=== PATIENT | female | born 1945 | race African-American/Black ===

== ENCOUNTER 2018-09-17 10:10 | Outpatient (CLI) | payer OTHER ==
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
== END 2018-09-17 10:11 | disposition home or self-care (01) ==
LOC: RAD-FRANK 10:10
PROVIDERS: ATTEND Internal Medicine
DX: R07.81 Pleurodynia (principal); S20.35 Superficial foreign body of front wall of thorax

== ENCOUNTER 2018-10-11 07:27 | Emergency (ER) | payer OTHER, MEDICARE ==
[2018-10-11 08:27] LABS: #Eosinphils 0.1 thou/uL (0.0-0.7); #Lymphocytes 1.7 thou/uL (1.20-3.40); #Monocytes 0.4 thou/uL (0.11-0.59); %Basophils 0.4 % (0.0-1.0); %Lymphocytes 32.8 % (21.0-51.0); %Neutrophils 56.8 % (42.0-75.0); Hemoglobin 12.1 g/dL (12.0-16.0); Mean Corpuscular HGB CONC 30.3 g/dL (32.0-36.0); Mean Corpuscular Hemoglobin 27.2 pg (27.0-31.0); Mean Corpuscular Volume 89.9 fL (78.0-98.0); Mean Platelet Volume 6.6 fL (7.4-10.4); Platelet Count 351 thou/uL (130-400); RBC Distribution Width 13.5 % (11.5-14.5); Red Blood Cell (RBC) Count 4.44 mill/uL (4.20-5.40); White Blood Cell (WBC) Count 5.3 thou/uL (4.8-10.8)
[2018-10-11 08:41] LABS: ALT (SGPT) 15 U/L (8-55); AST (SGOT) 20 U/L (5-34); Albumin 3.9 g/dL (3.4-4.8); Alkaline Phosphatase 89 U/L (40-150); Anion Gap 8 mmol/L (10-20); BUN (Urea Nitrogen) 12 mg/dL (9.8-20.1); Bilirubin, Total 0.3 mg/dL (0.2-1.2); Calc. Creatinine Clearance 0 mL/min (70-130); Calcium 9.7 mg/dL (7.8-10.44); Carbon Dioxide 30 mmol/L (23-31); Chloride 105 mmol/L (98-107); Estimated GFR-MDRD 77; Globulin 3.2 g/dL (2.4-3.5); Glucose 114 mg/dL (83-110); Potassium 3.5 mmol/L (3.5-5.1); Protein, Total 7.1 g/dL (6.0-8.3); Sodium 139 mmol/L (136-145)
[2018-10-11 08:45] LABS: CKMB 1.3 ng/mL (0-6.6); Troponin I Less than 0.010 ng/mL (< 0.028)
[2018-10-11] MEDS ORDERED: Ketorolac Tromethamine 30 MG/ML VIAL ONE (09:40)
--- NOTE | 2018-10-11 10:00 | RAD ---
CHEST 2 VIEWS: Date: 10/11/18 HISTORY: Chest pain. COMPARISON: Radiograph from 2016. FINDINGS: There is a radiopaque foreign object in the right hemiabdomen, unchanged. There are small calcified g ranulomas in the right upper lobe similar to 2008. No focal confluent air space consolidation, pneumo thorax, or effusion. Chronic scarring of the left costophrenic sulcus. Chronic scarring left costophr enic sulcus. Mild dextroscoliosis thoracic spine. IMPRESSION: No significant change. No acute intrathoracic abnormality. POS: [facility]
[2018-10-11 11:55] LABS: Troponin I Less than 0.010 ng/mL (< 0.028)
== END 2018-10-11 13:00 | disposition home or self-care (01) ==
LOC: ERS 07:27
DX: R07.89 Other chest pain (principal); E11.9 Type 2 diabetes mellitus without complications; I10 Essential (primary) hypertension; E03.9 Hypothyroidism, unspecified; F41.9 Anxiety disorder, unspecified; Z79.82 Long term (current) use of aspirin; Z79.899 Other long term (current) drug therapy; Z79.1 Long term (current) use of non-steroidal anti-inflammatories (NSAID)
CPT/HCPCS: 36415; 71046; 80053; 82553; 84484; 85025; 93005; 96372; J1885

== ENCOUNTER 2018-11-09 05:46 | Observation (INO) | payer OTHER, MEDICARE ==
[2018-11-09 07:05] LABS: #Eosinphils 0.2 thou/uL (0.0-0.7); #Lymphocytes 2.9 thou/uL (1.20-3.40); #Monocytes 0.4 thou/uL (0.11-0.59); #Neutrophils 3.3 thou/uL (1.40-6.50); %Basophils 0.2 % (0.0-1.0); %Eosinophils 2.7 % (0.0-10.0); %Monocytes 5.5 % (0.0-10.0); %Neutrophils 48.6 % (42.0-75.0); Hemoglobin 11.2 g/dL (12.0-16.0); Mean Corpuscular Hemoglobin 28.3 pg (27.0-31.0); Mean Corpuscular Volume 88.3 fL (78.0-98.0); Mean Platelet Volume 6.7 fL (7.4-10.4); Platelet Count 363 thou/uL (130-400); Red Blood Cell (RBC) Count 3.94 mill/uL (4.20-5.40); White Blood Cell (WBC) Count 6.7 thou/uL (4.8-10.8)
[2018-11-09 07:29] LABS: ALT (SGPT) 12 U/L (8-55); AST (SGOT) 16 U/L (5-34); Albumin 3.7 g/dL (3.4-4.8); Alkaline Phosphatase 94 U/L (40-150); Anion Gap 11 mmol/L (10-20); BUN (Urea Nitrogen) 16 mg/dL (9.8-20.1); Bilirubin, Total 0.4 mg/dL (0.2-1.2); Calc. Creatinine Clearance 0 mL/min (70-130); Calcium 9.7 mg/dL (7.8-10.44); Carbon Dioxide 28 mmol/L (23-31); Chloride 104 mmol/L (98-107); Estimated GFR-MDRD 84; Globulin 3.5 g/dL (2.4-3.5); Glucose 121 mg/dL (83-110); Potassium 3.5 mmol/L (3.5-5.1); Protein, Total 7.2 g/dL (6.0-8.3); Sodium 139 mmol/L (136-145)
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
[2018-11-09] MEDS ORDERED: Enoxaparin Sodium 100 MG/ML SYRINGE ONE (08:10)
[2018-11-09 10:24] VITALS: BMI 37.1
[2018-11-09] MEDS ORDERED: Ondansetron PF 4 MG/2 ML Vial IVP PRN ×2 (10:33→20:33)
[2018-11-09] MEDS ORDERED: Ondansetron ODT 4 MG TAB SL PRN ×2 (10:33→20:33)
[2018-11-09] MEDS ORDERED: Acetaminophen 325 MG TAB PO PRN (10:33)
--- NOTE | 2018-11-09 11:12 | NM ---
LUNG PERFUSION SCAN: HISTORY: Chest pain. FINDINGS: Lung perfusion scan was performed. Ventilation perfusion scan was attempted; however, the patient wa s unable to follow breathing instructions. Radiation dosimetry: 5.8 mCi of Technetium 99m-MAA for the perfusion portion. Lung perfusion scan was performed and demonstrates no evidence of areas of perfusion defects to sugge st pulmonary emboli. No other definite abnormality is seen. IMPRESSION: Low probability scan for pulmonary emboli. POS: [facility]
[2018-11-09 11:41] LABS: Troponin I Less than 0.010 ng/mL (< 0.028)
[2018-11-09 14:41] LABS: Troponin I Less than 0.010 ng/mL (< 0.028)
[2018-11-09] MEDS ORDERED: Insulin Regular 300 UNITS/3 ML VIAL SC PRN (17:01)
[2018-11-09] MEDS ORDERED: Dextrose 50% Abboject 50 ML SYRINGE IVP PRN (17:01)
[2018-11-09] MEDS ORDERED: Dextrose 5% in Water 1,000 ML IV PRN (17:01)
[2018-11-09] MEDS ORDERED: Acetaminophen 500 MG TAB PO PRN (17:02)
[2018-11-09] MEDS ORDERED: ALPRAZolam 0.5 MG TAB PO PRN (17:02)
[2018-11-09] MEDS ORDERED: Ketorolac Tromethamine 30 MG/ML VIAL IVP SCH (18:00)
[2018-11-09] MEDS ORDERED: diphenhydrAMINE 25 MG CAP PO SCH (20:45)
[2018-11-09] MEDS ORDERED: Zolpidem Tartrate 5 MG TAB PO SCH (21:00)
--- NOTE | 2018-11-10 07:58 | HP ---
CHIEF COMPLAINT: Chest pain, shortness of breath, and dizziness. HISTORY OF PRESENT ILLNESS: Ms. Donald is a 73-year-old female with past medical history of diabetes, hypertension, and chronic back pain, who has developed pain last night in the right side advanced to the left side, which was like stabbing in nature and felt short of breath, and has been feeling dizzy as well, but no diaphoresis, no nausea or vomiting. The patient also complains of pain on the left side of the chest and below the breast where it has been going on for a few months. The patient is seen and currently had a CT of the chest done, but unremarkable. The patient was brought to the ER with left-sided chest pain, shortness of breath, and dizziness. In the ER, the patient did not have any chest pain. patient received aspirin, admitted to rule out myocardial infarction. PAST MEDICAL HISTORY: 1. Diabetes mellitus. 2. Hypertension. 3. Hyperlipidemia. 4. Gastroesophageal reflux disease. 5. Chronic back pain. 6. History of dizziness. PAST SURGICAL HISTORY: 1. Total hysterectomy. 2. Lumps removed from left breast. CURRENT MEDICATIONS: The patient is on; 1. Tylenol p.r.n. 2. Xanax 0.5 t.i.d. p.r.n. 3. Amlodipine 5 mg daily. 4. Aspirin 81 mg daily. 5. Lasix 20 mg daily. 6. Levothyroxine 50 mcg daily. 7. Losartan 100 mg daily. 8. KCl 10 mEq daily. 9. Ambien 5 mg at bedtime p.r.n. ALLERGIES: INCLUDE PENICILLIN, SULFA, CODEINE, AND DOXYCYCLINE. FAMILY HISTORY: Nothing contributory. SOCIAL HISTORY: The patient lives with family. No history of smoking. No alcohol. REVIEW OF SYSTEMS: CARDIOVASCULAR: Has chest pain and shortness of breath. RESPIRATORY: No fever or cough. GASTROINTESTINAL: No nausea, vomiting or abdominal pain. CENTRAL NERVOUS SYSTEM: No headache. Dizziness. PHYSICAL EXAMINATION: GENERAL: The patient is alert, awake, and oriented x3. VITAL SIGNS: Temperature 98, pulse 80, respirations 20, and blood pressure 130/ 80. HEENT: Head is normocephalic and atraumatic. Pupils are equal and reactive to light. Nasopharynx is pale SKIN: Turgor decreased. NECK: Supple. No JVD. LUNGS: Bilateral air entry present. HEART: Regular. Chest wall tender in the right mid rib area and below the right breast. ABDOMEN: Soft. No distention. No tenderness. Normal bowel sounds. CENTRAL NERVOUS SYSTEM: No focal deficits. LABORATORY DATA: CBC; WBC 6700, hemoglobin 11, hematocrit 34, platelets 360, D-dimer 1.38. Metabolic panel; sodium 139, potassium 3.6, chloride 104. Troponin I less than 0.06. ASSESSMENT: 1. Chest pain and shortness of breath, rule out myocardial infarction. 2. Pain below right breast, etiology not clear. 3. Dizziness. 4. Hypertension. 5. Diabetes mellitus. 6. Chronic back pain. PLAN: 1. Vital signs q.4 hours. 2. Activity as tolerated. 3. Allergies: Penicillin, sulfa, codeine and doxycycline. 4. Diet, cardiac and ADA. 5. Continue home medications. 6. Aspirin daily. 7. Accu-Chek before meals and at bedtime, sliding scale with mild regular insulin. 8. Troponin I q 6hrs x 2 9. Toradol p.r.n. 10. Bone scan. Job ID: [id number] [facility]
[2018-11-10 08:07] VITALS: BP 133/58; TEMP 98
[2018-11-10] MEDS ORDERED: Furosemide 20 MG TAB PO SCH (09:00)
[2018-11-10] MEDS ORDERED: Amlodipine 5 MG TAB PO SCH (09:00)
[2018-11-10] MEDS ORDERED: Losartan 25 MG TAB PO SCH (09:00)
--- NOTE | 2018-11-11 14:48 | DIS ---
DATE OF ADMISSION: 11/09/2018 DATE OF DISCHARGE: 11/10/2018 ADMITTING DIAGNOSES: 1. Chest pain and shortness of breath, rule out myocardial infarction. 2. Pain below right rib area, etiology not clear. 3. Dizziness. 4. Hypertension. 5. Diabetes mellitus. 6. Chronic back pain. FINAL DIAGNOSES: 1. Chest pain and shortness of breath, no evidence of acute myocardial infarction with normal cardiac enzymes. 2. Chest pain, resolved. 3. Right rib cage area pain, improving. 4. Dizziness, improved. 5. Hypertension. 6. Diabetes mellitus. 7. Chronic back pain. BRIEF SUMMARY OF HOSPITAL COURSE: Ms. Donald is a 73-year-old female, admitted because of chest pain and right rib pain. The patient was admitted to rule out myocardial infarction because of her risk factors. The patient had Cardiolite stress test and it was reprted as negative for ischemia. The patient continued to have right rib cage area pain and she had a CAT done at the [facility], did not reveal any abnormality. Chest x-ray was normal and rib x- rays are normal. A VQ scan was negative for pulmonary embolism. Suggested bone scan, but it could not be done because of her VQ scan. Again the bone scan can be done as an outpatient, so the patient will continue Motrin p.r.n. for her right rib pain. She is being discharged home. At the time of discharge, she is stable, vital signs are stable, abdomen is soft, nontender. DISCHARGE MEDICATIONS: 1. KCl 10 mEq daily. 2. Xanax 0.5 t.i.d. p.r.n. 3. Lasix 20 mg daily. 4. Levothyroxine 50 mcg daily. 5. Ambien 5 mg at bedtime. 6. Tylenol Extra Strength p.r.n. 7. Aspirin 81 mg daily. FOLLOWUP: The patient will followup 2 weeks. Job ID: [id number] [facility]
--- NOTE | 2018-11-15 13:26 | EKG ---
Test Reason : Blood Pressure : / mmHG Vent. Rate : 076 BPM Atrial Rate : 076 BPM P-R Int : 192 ms QRS Dur : 082 ms QT Int : 386 ms P-R-T Axes : 072 003 017 degrees QTc Int : 434 ms Normal sinus rhythm Normal ECG Confirmed by LARISSA HEARN DO ([id number]), newspaper or periodical editor LETHA SWENSON ([id number]) on 11/15/2018 1:25:53 PM Referred By: Confirmed By:LARISSA HEARN DO
== END 2018-11-10 10:09 | disposition home or self-care (01) ==
LOC: ERS 05:46 → 2SW 07:52
PROVIDERS: ADMIT Internal Medicine; ATTEND Internal Medicine
DX: R07.9 Chest pain, unspecified (principal); R06.02 Shortness of breath; R42 Dizziness and giddiness; I10 Essential (primary) hypertension; E11.9 Type 2 diabetes mellitus without complications; G89.29 Other chronic pain; M54.9 Dorsalgia, unspecified; E78.5 Hyperlipidemia, unspecified; K21.9 Gastro-esophageal reflux disease without esophagitis; Z79.82 Long term (current) use of aspirin; Z79.899 Other long term (current) drug therapy; Z88.0 Allergy status to penicillin; Z88.1 Allergy status to other antibiotic agents; Z88.2 Allergy status to sulfonamides; Z88.5 Allergy status to narcotic agent
CPT/HCPCS: 36415; 36416; 71046; 78582; 80053; 84484; 85025; 85379; 93005; 94640; 96372; 96374; A9540; A9558; G0378; J1650; J1885; J7620; Q0162

== ENCOUNTER 2018-11-11 10:10 | Outpatient (CLI) | payer OTHER, MEDICARE ==
--- NOTE | 2018-11-11 17:11 | NM ---
WHOLE BODY BONE SCAN: 11/11/18 HISTORY: Right sided rib pain. Hypercalcemia. RADIOPHARMACEUTICAL: 30.4 millicuries technetium 99m labeled MDP, IV. VIEWS OBTAINED: Inferior posterior whole body. COMPARISON: None available. FINDINGS: There is mild increased uptake of radiotracer seen within the bilateral shoulders, each sternoclavicu lar joint and medial aspect of each knee in a degenerative pattern. No additional abnormal uptake rad iotracer seen throughout the visualized axial or appendicular skeleton. There is mild retention of co ntrast seen within the left renal collecting system of uncertain etiology. Contrast is seen in the u rinary bladder. IMPRESSION: 1. Mild scattered degenerative changes as noted above, but there is no scintigraphic evidence of osseous metastatic disease. 2. No focal areas of abnormal uptake of radiotracer is seen within the right sided ribs. 3. Mild nonspecific retention of radiotracer within the left renal collecting system. POS: [facility]
== END 2018-11-11 10:11 | disposition home or self-care (01) ==
LOC: NM 10:10
PROVIDERS: ATTEND Internal Medicine
DX: R07.81 Pleurodynia (principal); R94.8 Abnormal results of function studies of other organs and systems
CPT/HCPCS: 78306; A9503

== ENCOUNTER 2019-05-31 18:44 | Emergency (ER) | payer OTHER, MEDICARE ==
[2019-05-31] MEDS ORDERED: diphenhydrAMINE 12.5 MG/5 ML UDCUP ONE ×2 (19:06→20:30)
[2019-05-31] MEDS ORDERED: Acetaminophen 500 MG TAB ONE (19:06)
[2019-05-31] MEDS ORDERED: diphenhydrAMINE 25 MG CAP ONE ×2 (19:06→19:33)
[2019-05-31] MEDS ORDERED: diphenhydrAMINE 50 MG/ML VIAL ONE (19:07)
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
--- NOTE | 2019-05-31 19:38 | RAD ---
RIGHT KNEE FOUR VIEWS: HISTORY: Pain. COMPARISON: 08/20/2013 FINDINGS: No significant joint effusion. Mild degenerative change of the patellofemoral and medial compartment . No fracture or malalignment. IMPRESSION: Mild bicompartmental degenerative change. POS: [facility]
[2019-05-31] MEDS ORDERED: Ondansetron ODT 4 MG TAB ONE (19:42)
--- NOTE | 2019-05-31 19:43 | RAD ---
RIGHT SHOULDER THREE VIEWS: HISTORY: Fall. Pain. FINDINGS: Limited evaluation of the glenohumeral joint space, based upon the images provided. Obvious dislocat ion is not appreciated. Better evaluation of the glenohumeral joint space, as well as alignment of t he humeral head with respect to the glenoid, with a scapular Y or axillary view would be beneficial. Based on the images provided, no fracture. The visualized ribs appear to be intact. There is mild degenerative change of the acromioclavicular joint space. IMPRESSION: 1. No evidence of fracture. 2. Limited evaluation for dislocation. Additional imaging as recommended. POS: [facility]
== END 2019-05-31 22:05 | disposition home or self-care (01) ==
LOC: ERS 18:44
DX: S63.502A Unspecified sprain of left wrist, initial encounter (principal); M25.561 Pain in right knee; M25.511 Pain in right shoulder; Z79.899 Other long term (current) drug therapy; E11.9 Type 2 diabetes mellitus without complications; E03.9 Hypothyroidism, unspecified; I10 Essential (primary) hypertension; F41.9 Anxiety disorder, unspecified; W18.30XA Fall on same level, unspecified, initial encounter
CPT/HCPCS: 71045; J1200; Q0162; Q0163

== ENCOUNTER 2019-12-23 10:15 | Inpatient (IN) | payer OTHER, MEDICARE ==
[2019-12-23 11:32] LABS: #Eosinphils 0.1 thou/uL (0.0-0.7); #Lymphocytes 2.2 thou/uL (1.20-3.40); #Monocytes 0.5 thou/uL (0.11-0.59); #Neutrophils 5.5 thou/uL (1.40-6.50); %Basophils 0.5 % (0.0-1.0); %Eosinophils 0.7 % (0.0-10.0); %Lymphocytes 26.8 % (21.0-51.0); %Monocytes 5.5 % (0.0-10.0); %Neutrophils 66.5 % (42.0-75.0); Hemoglobin 11.9 g/dL (12.0-16.0); Mean Corpuscular HGB CONC 32.7 g/dL (32.0-36.0); Mean Corpuscular Volume 88.8 fL (78.0-98.0); Mean Platelet Volume 6.7 fL (7.4-10.4); Platelet Count 393 thou/uL (130-400); RBC Distribution Width 13.6 % (11.5-14.5); White Blood Cell (WBC) Count 8.2 thou/uL (4.8-10.8)
[2019-12-23] MEDS ORDERED: hydrALAZINE 20 MG/ML VIAL ONE (11:38)
[2019-12-23] MEDS ORDERED: Meclizine HCl 25 MG TAB ONE (11:38)
[2019-12-23 11:45] LABS: ALT (SGPT) 9 U/L (8-55); AST (SGOT) 16 U/L (5-34); Albumin 3.8 g/dL (3.4-4.8); Alkaline Phosphatase 110 U/L (40-110); Anion Gap 14 mmol/L (10-20); BUN (Urea Nitrogen) 15 mg/dL (9.8-20.1); Bilirubin, Total 0.6 mg/dL (0.2-1.2); Calc. Creatinine Clearance 0 mL/min (70-130); Calcium 9.5 mg/dL (7.8-10.44); Carbon Dioxide 25 mmol/L (23-31); Chloride 102 mmol/L (98-107); Estimated GFR-MDRD 82; Globulin 3.8 g/dL (2.4-3.5); Glucose 104 mg/dL (83-110); Potassium 3.8 mmol/L (3.5-5.1); Protein, Total 7.6 g/dL (6.0-8.3); Sodium 137 mmol/L (136-145)
[2019-12-23 12:32] LABS: Bacteria/HPF 1+ HPF (None Seen); Bilirubin Negative (Negative); Blood, Urine Negative (Negative); Clarity Clear (Clear); Glucose, Urine (Dipstick) Normal (Negative); Leukocyte 500 Leu/uL (Negative); Nitrite Negative (Negative); Protein, Urine (Dipstick) Negative (Neg-Trace); RBC/HPF 0-3 HPF (0-3); Urobilinogen Normal mg/dL (Less than 2)
[2019-12-23] MEDS ORDERED: Diazepam 10 MG/2 ML SYRINGE ONE (12:47)
--- NOTE | 2019-12-23 14:36 | CT ---
CT HEAD WITHOUT CONTRAST: Date: 12/23/2019 Axial tomograms obtained without IV enhancement. INDICATION: Dizziness. Comparison made to CT scan dated 08/06/16. FINDINGS: No evidence of intracranial mass or hemorrhage. Mild ischemic white matter change appears stable. The re are ischemic changes seen in the basal ganglia bilaterally, which also appear stable. If there is concern of acute lacunar infarct, recommend further evaluation with MRI. IMPRESSION: No evidence of acute cortical infarct. There are chronic ischemic changes in the basal ganglia region s as described. POS: [facility]
[2019-12-23] MEDS ORDERED: Ondansetron PF 4 MG/2 ML Vial ONE (14:52)
[2019-12-23] MEDS ORDERED: Acetaminophen 500 MG TAB ONE (15:49)
[2019-12-23 16:55] VITALS: BMI 34.2
[2019-12-23] MEDS ORDERED: Ondansetron ODT 4 MG TAB SL PRN (16:58)
[2019-12-23] MEDS ORDERED: Ondansetron PF 4 MG/2 ML Vial IVP PRN (16:58)
[2019-12-23] MEDS ORDERED: Dextrose 50% Abboject 50 ML SYRINGE IVP PRN (19:06)
[2019-12-23] MEDS ORDERED: Dextrose 5% in Water 1,000 ML IV PRN (19:06)
[2019-12-23] MEDS ORDERED: Insulin Regular 300 UNITS/3 ML VIAL SC PRN (19:06)
[2019-12-23] MEDS: Acetaminophen 500 MG TAB PO SCH (21:08)
[2019-12-23] MEDS: Meclizine HCl 25 MG TAB PO SCH (21:09)
[2019-12-23] MEDS ORDERED: Zolpidem Tartrate 5 MG TAB PO SCH (21:30)
[2019-12-24] MEDS: Acetaminophen 500 MG TAB PO SCH ×3 (08:01→17:01)
[2019-12-24] MEDS: Losartan 25 MG TAB PO SCH (08:02)
[2019-12-24] MEDS: Meclizine HCl 25 MG TAB PO SCH ×3 (08:03→21:26)
[2019-12-24] MEDS: Potassium Chloride 10 MEQ TAB PO SCH ×2 (08:03→21:24)
[2019-12-24] MEDS: Levothyroxine Sodium 50 MCG TAB PO SCH (08:03)
[2019-12-24] MEDS: Amlodipine 5 MG TAB PO SCH (08:03)
[2019-12-24] MEDS: Aspirin 81 mg Enteric Coated Tablet PO SCH (08:03)
[2019-12-24] MEDS: Furosemide 20 MG TAB PO SCH ×2 (08:03→21:26)
--- NOTE | 2019-12-24 08:05 | HP ---
CHIEF COMPLAINT: Severe dizziness and pain and pressure on the left side of the head. HISTORY OF PRESENT ILLNESS: Ms. Donald is a 74-year-old female with past medical history of hypertension, hyperlipidemia, anxiety disorder, came with sudden onset of dizziness started yesterday and got worse last night and this morning. The patient was unable to ambulate at home, unable to stand and feeling very dizzy and the room spinning around, but no ringing in the ears. No nausea , but has some pressure like pain on the left side of the head, left occipital area. The patient had a problem of dizziness in the past, was evaluated by the ENT specialist at that time. She has hearing aid on the right, after which her hearing improved vertigo also kind of improved but started again now. So, the patient came to the ER, where she was evaluated and found to have elevated blood pressure and also CT scan of the brain was done, it was unremarkable. The patient received Zofran, Tylenol, and diltiazem in the ER. The patient is admitted for further evaluation and management. PAST MEDICAL HISTORY: 1. Hypertension. 2. Anxiety disorder. 3. Insomnia. 4. Chronic back pain. 5. Gastroesophageal reflux disease. 6. Diabetes mellitus. PAST SURGICAL HISTORY: 1. Status post hysterectomy. 2. Status post lump removal from left breast. CURRENT MEDICATIONS: The patient is on: 1. Xanax 0.5 t.i.d. p.r.n. 2. Amlodipine 5 mg daily. 3. Aspirin 81 mg daily. 4. Nexium 20 mg daily. 5. Lasix 20 b.i.d. 6. Levothyroxine 50 mcg daily. 7. Losartan 100 mg daily. 8. Potassium chloride 10 mEq b.i.d. 9. Ambien 5 mg at bedtime. ALLERGIES: PENICILLIN, SULFA, CODEINE, AND DOXYCYCLINE. FAMILY HISTORY: Nothing contributory. SOCIAL HISTORY: The patient lives with family. No history of smoking. No history of alcohol. REVIEW OF SYSTEMS: CARDIOVASCULAR: No chest pain. No shortness of breath. RESPIRATORY: Has no cough or fever. GASTROINTESTINAL: No nausea or vomiting. No abdominal pain. CENTRAL NERVOUS SYSTEM: Has pressure pain on the left side of the head and dizziness. PHYSICAL EXAMINATION: GENERAL: The patient is alert, awake. VITAL SIGNS: Temperature 98, pulse 84, respiratory rate 20, blood pressure 160/ 70. HEENT: Head is normocephalic and atraumatic. Pupils are equal and reactive. Nasopharynx is pale and dry. NECK: Supple. No JVD. LUNGS: Bilateral air entry. No rales. No rhonchi. HEART: S1 and S2 regular. ABDOMEN: Soft. No distention. No tenderness. No organomegaly. Bowel sounds present. RECTAL: Deferred. CENTRAL NERVOUS SYSTEM: The patient is alert, awake, oriented x3. Motor system, power 4/5 in all extremities. Deep tendon reflex 2+ bilaterally. Plantars downgoing. Sensory intact. LABORATORY DATA: CBC shows WBC 8.5, hemoglobin 11.9, hematocrit 36. platelets 393. Metabolic panel; sodium 137, potassium 3.8, chloride 102, CO2 of 25, urea nitrogen 15, creatinine 0.8, glucose 104. Troponin less than 0.010. Urinalysis, wbc 11-20, bacteria 1+. CT scan of brain unremarkable. ASSESSMENT: 1. Severe dizziness, possible vertigo. 2. Pressure to the left side of the head. 3. Hypertension, uncontrolled. 4. Diabetes mellitus. 5. Hyperlipidemia. 6. Anxiety disorder. 7. Insomnia. 8. Gastroesophageal reflux disease. PLAN: 1. Vital signs q.4 hours. 2. Activity, as tolerated. 3. Allergies, multiple, which include codeine, Toradol, morphine, penicillin, sulfa, doxycycline. 4. Diet, ADA. 5. Continue home medications. 6. Meclizine 25 mg t.i.d. 7. Neurology consult. 8. Tylenol Extra Strength one q.4 hours. 9. Accu-Chek before meals and sliding scale mild with regular insulin. Job ID: [id number] [facility]
[2019-12-24] MEDS: ALPRAZolam 0.5 MG TAB PO PRN (19:06)
[2019-12-24] MEDS: Zolpidem Tartrate 5 MG TAB PO SCH (21:25)
[2019-12-24] MEDS: Atorvastatin Calcium 40 MG TAB PO SCH (21:25)
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
[2019-12-25] MEDS: Acetaminophen 500 MG TAB PO SCH ×5 (00:40→23:07)
[2019-12-25] MEDS: Levothyroxine Sodium 50 MCG TAB PO SCH (05:37)
--- NOTE | 2019-12-25 08:16 | ULT ---
Carotid duplex sonogram HISTORY: Dizziness. Vascular disease. FINDINGS: Right: Small area of plaque. Color and spectral Doppler evaluation, peak systolic velocity of 41 cm/s , and IC to CC ratio 0.8 suggest no hemodynamically significant stenosis within the extracranial right ICA. Antegrade flow within the vertebral artery. Left: Mild plaque. Color and spectral Doppler evaluation, peak systolic velocity of 62 cm/s, and IC t o CC ratio 1.0 suggest no hemodynamically significant stenosis within the extracranial left ICA. Antegrade flow within the vertebral artery. IMPRESSION: Atherosclerosis. No sonographic evidence of significant extracranial ICA stenosis.
[2019-12-25] MEDS: Losartan 25 MG TAB PO SCH (09:24)
[2019-12-25] MEDS: Amlodipine 5 MG TAB PO SCH (09:25)
[2019-12-25] MEDS: Potassium Chloride 10 MEQ TAB PO SCH ×2 (09:25→20:47)
[2019-12-25] MEDS: Clopidogrel Bisulfate 75 MG TAB PO SCH (09:25)
[2019-12-25] MEDS: Meclizine HCl 25 MG TAB PO SCH ×3 (09:25→20:46)
[2019-12-25] MEDS: Aspirin 81 mg Enteric Coated Tablet PO SCH (09:25)
[2019-12-25] MEDS: Furosemide 20 MG TAB PO SCH ×2 (09:25→20:46)
--- NOTE | 2019-12-25 09:32 | CT ---
BRAIN CT WITHOUT IV CONTRAST: HISTORY: Dizziness, left-sided head pain. COMPARISON: 12/23/2019. FINDINGS: Evidence for minimal fluid it he left maxillary sinus. The mastoids appear clear. The remainder of the sinuses appear clear of acute process. No evidence for mass effect or midline shift. No intra- or extraaxial hemorrhage. There is a 0.3 cm diameter focal area of nodular slightly increased densit y adjacent to the inner table of the skull in the left parietal region, axial image 23 of 32. This, however, is stable dating back to a 2011 study and does not represent any type of acute process. IMPRESSION: Evidence for fluid in the left maxillary sinus. No evidence for other significant acute process. St able exam dating back to 08/24/2012. POS: [facility]
[2019-12-25] MEDS ORDERED: Dexamethasone 20 MG/5 ML VIAL SLOW IVP SCH (16:45)
[2019-12-25] MEDS ORDERED: Dexamethasone 10 MG/ML VIAL SLOW IVP SCH (17:00)
[2019-12-25] MEDS: Atorvastatin Calcium 40 MG TAB PO SCH (20:46)
[2019-12-25] MEDS: Zolpidem Tartrate 5 MG TAB PO SCH (20:47)
[2019-12-26 04:30] LABS: #Lymphocytes 1.2 thou/uL (1.20-3.40); #Monocytes 0.1 thou/uL (0.11-0.59); #Neutrophils 6.1 thou/uL (1.40-6.50); %Basophils 0.6 % (0.0-1.0); %Eosinophils 0.1 % (0.0-10.0); %Lymphocytes 16.5 % (21.0-51.0); %Monocytes 0.8 % (0.0-10.0); Hemoglobin 12.3 g/dL (12.0-16.0); Mean Corpuscular HGB CONC 32.2 g/dL (32.0-36.0); Mean Corpuscular Hemoglobin 28.1 pg (27.0-31.0); Mean Corpuscular Volume 87.2 fL (78.0-98.0); Mean Platelet Volume 6.7 fL (7.4-10.4); Platelet Count 383 thou/uL (130-400); RBC Distribution Width 13.4 % (11.5-14.5); White Blood Cell (WBC) Count 7.4 thou/uL (4.8-10.8)
[2019-12-26 04:54] LABS: ALT (SGPT) 11 U/L (8-55); AST (SGOT) 14 U/L (5-34); Albumin 3.8 g/dL (3.4-4.8); Alkaline Phosphatase 116 U/L (40-110); Anion Gap 13 mmol/L (10-20); BUN (Urea Nitrogen) 15 mg/dL (9.8-20.1); Bilirubin, Total 0.4 mg/dL (0.2-1.2); Calc. Creatinine Clearance 80 mL/min (70-130); Calcium 9.6 mg/dL (7.8-10.44); Carbon Dioxide 24 mmol/L (23-31); Chloride 102 mmol/L (98-107); Estimated GFR-MDRD 73; Globulin 3.7 g/dL (2.4-3.5); Glucose 171 mg/dL (83-110); Potassium 4.1 mmol/L (3.5-5.1); Protein, Total 7.5 g/dL (6.0-8.3); Sodium 135 mmol/L (136-145)
[2019-12-26] MEDS: Acetaminophen 500 MG TAB PO SCH ×3 (06:51→18:39)
[2019-12-26] MEDS: Levothyroxine Sodium 50 MCG TAB PO SCH (06:51)
[2019-12-26] MEDS: Aspirin 81 mg Enteric Coated Tablet PO SCH (10:05)
[2019-12-26] MEDS: Losartan 25 MG TAB PO SCH (10:05)
[2019-12-26] MEDS: Clopidogrel Bisulfate 75 MG TAB PO SCH (10:05)
[2019-12-26] MEDS: Amlodipine 5 MG TAB PO SCH (10:05)
[2019-12-26] MEDS: Potassium Chloride 10 MEQ TAB PO SCH ×2 (10:05→21:27)
[2019-12-26] MEDS: Meclizine HCl 25 MG TAB PO SCH ×3 (10:06→21:27)
[2019-12-26] MEDS: Furosemide 20 MG TAB PO SCH ×2 (10:06→21:27)
[2019-12-26] MEDS: Zolpidem Tartrate 5 MG TAB PO SCH (21:27)
[2019-12-26] MEDS: Atorvastatin Calcium 40 MG TAB PO SCH (21:27)
[2019-12-27] MEDS: ALPRAZolam 0.5 MG TAB PO PRN ×2 (01:22→09:37)
[2019-12-27] MEDS: Acetaminophen 500 MG TAB PO SCH ×4 (01:22→17:24)
[2019-12-27] MEDS: Levothyroxine Sodium 50 MCG TAB PO SCH (05:06)
[2019-12-27] MEDS: Meclizine HCl 25 MG TAB PO SCH ×3 (09:27→20:58)
[2019-12-27] MEDS: Potassium Chloride 10 MEQ TAB PO SCH ×2 (09:27→20:59)
[2019-12-27] MEDS: Amlodipine 5 MG TAB PO SCH (09:27)
[2019-12-27] MEDS: Losartan 25 MG TAB PO SCH (09:27)
[2019-12-27] MEDS: Furosemide 20 MG TAB PO SCH ×2 (09:27→20:58)
[2019-12-27] MEDS: Clopidogrel Bisulfate 75 MG TAB PO SCH (09:27)
[2019-12-27] MEDS: Aspirin 81 mg Enteric Coated Tablet PO SCH (09:27)
[2019-12-27] MEDS ORDERED: Milk Of Magnesia 30 ML UDCUP PO SCH (13:30)
[2019-12-27] MEDS: Atorvastatin Calcium 40 MG TAB PO SCH (20:58)
[2019-12-27] MEDS: Zolpidem Tartrate 5 MG TAB PO SCH (20:58)
[2019-12-28] MEDS: Acetaminophen 500 MG TAB PO SCH ×2 (00:25→05:49)
[2019-12-28] MEDS: Levothyroxine Sodium 50 MCG TAB PO SCH (05:49)
--- NOTE | 2019-12-28 07:43 | HP ---
The patient seen in consultation by Dr. Heller for evaluation of intractable dizziness. BRIEF HISTORY: This is a 74-year-old female with acute onset of dizziness 2 nights prior. She was admitted to the emergency room. CT scan of the brain done on admission and again today shows no evidence of acute significant infarcts. 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 The patient reports waking up, feeling significantly dizzy whenever she moves more towards her right or leans towards . She has vertigo episodes. She reports having this approximately 3 years ago. She wears a hearing aid in her right ear only. She reports her right ear has much worse hearing than the left and it has been that way for many, many years. She has seen previous ENT in an outside facility. The normal workup for this for a significant asymmetric loss with vertigo is an MRI. They were unable to perform an MRI secondary to aneurysm clip. CT of the brain performed shows no lesions; however it was done without contrast. She reports no change in her hearing on the right or left side. PAST MEDICAL HISTORY: Diabetes, hypertension, mild coronary artery disease. SOCIAL HISTORY: Nonsmoker, nondrinker. PHYSICAL EXAMINATION: VITAL SIGNS: Stable. Oxygen sats are 90% or greater. NEUROLOGIC: Cranial nerves 2-12 were intact. HEENT: Extraocular muscles are intact. Nasal cavity is clear. Ears show hearing aid present in the right ear. Otherwise, tympanic membranes are intact. Middle ears . Oral cavity, mucosa is intact. NECK: No lymphadenopathy, no masses. No bruits over the carotid artery. Pietro-Hallpike testing for BPPV is negative bilaterally; however on the right side, she does have a small and persistent right-sided nystagmus. ASSESSMENT: Likely right peripheral vestibular neuritis although we cannot rule out an underlying acoustic neuroma. An MRI would be the choice of radiology evaluation. However, with her aneurysm clips we are enable to perform this. I am writing an order for CT scan of the brain and internal auditory canal with contrast. We will give her 40 mg of Decadron and closely monitor her blood sugars. Hopefully, this can improve her symptoms clinically. She is going to have physical therapy, occupational therapy evaluate her tomorrow after steroids have taken effect. Job ID: [id number]
[2019-12-28 08:00] VITALS: BP 139/87; TEMP 98.5
[2019-12-28] MEDS: Potassium Chloride 10 MEQ TAB PO SCH (08:38)
[2019-12-28] MEDS: Losartan 25 MG TAB PO SCH (08:38)
[2019-12-28] MEDS: Furosemide 20 MG TAB PO SCH (08:38)
[2019-12-28] MEDS: Clopidogrel Bisulfate 75 MG TAB PO SCH (08:39)
[2019-12-28] MEDS: Aspirin 81 mg Enteric Coated Tablet PO SCH (08:39)
[2019-12-28] MEDS: Meclizine HCl 25 MG TAB PO SCH (08:39)
[2019-12-28] MEDS: Amlodipine 5 MG TAB PO SCH (08:39)
--- NOTE | 2019-12-29 10:54 | DIS ---
DATE OF ADMISSION: 12/25/2019 DATE OF DISCHARGE: 12/28/2019 ADMITTING DIAGNOSES: 1. Severe dizziness, vertigo. 2. Pressure to the left side of the head. 3. Hypertension, uncontrolled. 4. Diabetes mellitus. 5. Hyperlipidemia. 6. Anxiety disorder. 7. Insomnia. 8. Gastroesophageal reflux disease. FINAL DIAGNOSES: 1. Severe vertigo, improved. 2. Headache and some blurred vision, possibly posterior circulation stroke. 3. Hypertension, uncontrolled, improved. 4. Diabetes mellitus. 5. Hyperlipidemia. 6. Anxiety disorder. 7. Insomnia. BRIEF SUMMARY OF HOSPITAL COURSE: Ms. Donald is a 74-year-old female, admitted because of dizziness, vertigo possibly, and also some pressure to the left side of the head, and some blurry vision. She was started on meclizine. Carotid Doppler study was done and it came as negative for any hemodynamically significant stenosis. An echocardiogram was also done showed LV function of 50%, otherwise negative. Repeat CT of the brain was done which showed evidence of fluid in the left maxillary sinus. The patient was seen by a neurologist in view of her persistent dizziness, vertigo, he felt the patient has acute vertigo and headache with some blurred vision, suggesting possibility of a posterior circulation stroke. He suggested to start the patient on Plavix and Lipitor. An ENT consult was also done in the ER for persistent vertigo. The patient is being seen by Dr. Chavarria. He felt the patient possibly has right peripheral vestibular neuritis, and he suggested to give 40 mg of Decadron, which she was given. After two more days, the patient's dizziness improved. Her headache also improved. She was also ambulated without any problems. In view of improvement, the patient is being discharged home. At the time of discharge, she was stable. Her vital signs stable. Lungs, clear. Heart sounds regular. Abdomen, soft and nontender. Bowel sounds present. DISCHARGE MEDICATIONS: Include, 1. KCl 10 mEq b.i.d. 2. Xanax 0.5 t.i.d. 3. Lasix 20 mg b.i.d. 4. Levothyroxine 50 mcg daily. 5. Ambien 5 mg nightly. 6. Amlodipine 5 mg daily. 7. Losartan 100 mg daily. 8. Nexium 20 mg daily. 9. Aspirin 81 mg daily. 10. Tylenol p.r.n. 11. Plavix 75 mg daily. 12. Meclizine 25 mg t.i.d. The patient will come for followup in 2 weeks. Job ID: [id number]
--- NOTE | 2019-12-30 07:23 | PQF ---
BEV MOJICA VENKAT R MD [id number] [facility] [place]-[id number] CLINICAL DOCUMENTATION CLARIFICATION FORM: POST DISCHARGE Addendum to original discharge summary date: ____ Late entry note date: __ DATE:12/30/2019 ATTN:DANIELA HELLER MD Please exercise your independent, professional judgment in responding to the clarification form. Clinical indicators are provided on the bottom of this form for your review Please check appropriate box(s): kindly clarify the diagnosis etiology of vertigo and headache; [ ] Vertigo and headache due to Stroke [ ] Vertigo and headache due to Acoustic neuroma [ ] Vertigo and headache due to Vestibular neuritis [ ] Other diagnosis [ y] Unable to determine For continuity of documentation, please document condition throughout progress notes and discharge summary. Thank You. CLINICAL INDICATORS - SIGNS / SYMPTOMS / LABS Likely right peripheral vestibular neuritis although we cannot rule out an underlying acoustic neuroma-Documented in H&P on 12/25 by Demetrio Chavarria MD Patient admitted because of dizziness, vertigo possibly and also some pressure to the left side of the head and some blurry vision-Documented in Discharge summary on 12/28 by Daniela Heller MD Repeat CT of the brain was also done which showed evidence of fluid in the maxillary sinus-Documented in Discharge summary on 12/28 by Daniela Heller MD Patient has acute vertigo and headache with some blurred vision suggesting possibility of a posterior circulation stroke-Documented in Discharge summary on 12/28 by Daniela Heller MD The patient is being seen by Deon Milian.He felt the patient possibly has right peripheral vestibular neuritis -Documented in Discharge summary on 12/28 by Daniela Heller MD RISK FACTORS Likely right peripheral vestibular neuritis although we cannot rule out an underlying acoustic neuroma-Documented in H&P on 12/25 by Demetrio Chavarria MD Patient has acute vertigo and headache with some blurred vision suggesting possibility of a posterior circulation stroke-Documented in Discharge summary on 12/28 by Daniela Heller MD TREATMENTS: We will give her 40 mg of decadron-Documented in H&P on 12/25 by Demetrio Chavarria MD She was started on meclizine-Documented in Discharge summary on 12/28 by Daniela Heller MD He suggested to start the patient on plavix and lipitor-Documented in Discharge summary on 12/28 by Daniela Heller MD [employer] (This form is maintained as a part of the permanent medical record) 2014 [employer], [employer]. All Rights Reserved [email or web address]
== END 2019-12-28 10:12 | disposition home or self-care (01) | DRG 154 ==
LOC: ERS 10:15 → 2SE 15:08 → OBSVTOIN 12-25 11:50
PROVIDERS: ADMIT Internal Medicine; ATTEND Internal Medicine
DX: H93.3X1 Disorders of right acoustic nerve (principal); I63.9 Cerebral infarction, unspecified; D33.3 Benign neoplasm of cranial nerves; E11.9 Type 2 diabetes mellitus without complications; E03.9 Hypothyroidism, unspecified; I10 Essential (primary) hypertension; Z90.710 Acquired absence of both cervix and uterus; F41.9 Anxiety disorder, unspecified; R29.700 NIHSS score 0; K21.9 Gastro-esophageal reflux disease without esophagitis; G47.00 Insomnia, unspecified; M54.9 Dorsalgia, unspecified; G89.29 Other chronic pain; Z88.5 Allergy status to narcotic agent; Z88.0 Allergy status to penicillin; Z88.2 Allergy status to sulfonamides; Z88.8 Allergy status to other drugs, medicaments and biological substances; R42 Dizziness and giddiness; H53.8 Other visual disturbances
CPT/HCPCS: 36415; 36416; 70450; 80053; 81003; 81015; 84443; 84484; 85025; 87086; 93005; 93306; 93880; 96374; 96375; J0360; J1100; J2405; J3360; J8597

== ENCOUNTER 2020-01-17 09:10 | Emergency (ER) | payer MEDICARE, OTHER ==
[2020-01-17] MEDS ORDERED: Dexamethasone 10 MG/ML VIAL ONE (09:30)
[2020-01-17] MEDS ORDERED: Lorazepam 2 MG/ML VIAL ONE (09:30)
[2020-01-17] MEDS ORDERED: Ondansetron PF 4 MG/2 ML Vial ONE (09:30)
[2020-01-17] MEDS ORDERED: Meclizine HCl 25 MG TAB ONE (09:30)
--- NOTE | 2020-01-17 09:54 | CT ---
EXAM: CT brain without contrast HISTORY: Dizziness and altered mental status COMPARISON: 12/25/2019 TECHNIQUE: Multiple contiguous axial images were obtained and a CT of the brain without contrast. FINDINGS: The brain is normal in morphology and attenuation without focal lesions or confluent areas of infarction. There is no evidence of hydrocephalus, intracranial hemorrhage, or extra-axial fluid collection. The calvarium and overlying soft tissues are unremarkable. The visualized paranasal sinuses and masto id air cells are well aerated. IMPRESSION: No evidence of acute intracranial abnormality
[2020-01-17 10:04] LABS: #Basophils 0.1 thou/uL (0.0-0.2); #Eosinphils 0.1 thou/uL (0.0-0.7); #Lymphocytes 2.3 thou/uL (1.20-3.40); #Monocytes 0.5 thou/uL (0.11-0.59); #Neutrophils 4.7 thou/uL (1.40-6.50); %Basophils 1.1 % (0.0-1.0); %Eosinophils 1.6 % (0.0-10.0); %Lymphocytes 30.1 % (21.0-51.0); %Monocytes 6.3 % (0.0-10.0); Hemoglobin 11.6 g/dL (12.0-16.0); Mean Corpuscular HGB CONC 32.9 g/dL (32.0-36.0); Mean Corpuscular Hemoglobin 29.3 pg (27.0-31.0); Mean Platelet Volume 7.4 fL (7.4-10.4); Platelet Count 360 thou/uL (130-400); RBC Distribution Width 13.9 % (11.5-14.5); Red Blood Cell (RBC) Count 3.95 mill/uL (4.20-5.40); White Blood Cell (WBC) Count 7.6 thou/uL (4.8-10.8)
[2020-01-17 10:20] LABS: ALT (SGPT) 9 U/L (8-55); AST (SGOT) 17 U/L (5-34); Albumin 3.6 g/dL (3.4-4.8); Alkaline Phosphatase 100 U/L (40-110); Anion Gap 14 mmol/L (10-20); BUN (Urea Nitrogen) 25 mg/dL (9.8-20.1); Bilirubin, Total 0.5 mg/dL (0.2-1.2); CK (CPK) 40 U/L (29-168); Calc. Creatinine Clearance 0 mL/min (70-130); Calcium 9.4 mg/dL (7.8-10.44); Carbon Dioxide 25 mmol/L (23-31); Chloride 104 mmol/L (98-107); Estimated GFR-MDRD 67; Globulin 3.6 g/dL (2.4-3.5); Glucose 97 mg/dL (83-110); Protein, Total 7.2 g/dL (6.0-8.3); Sodium 139 mmol/L (136-145)
[2020-01-17] MEDS ORDERED: Lorazepam 1 MG TAB ONE (10:43)
[2020-01-17] MEDS ORDERED: predniSONE 20 MG TAB ONE (10:44)
[2020-01-17 11:31] LABS: Bacteria/HPF None Seen HPF (None Seen); Bilirubin Negative (Negative); Blood, Urine Negative (Negative); Clarity Clear (Clear); Glucose, Urine (Dipstick) Normal (Negative); Leukocyte 250 Leu/uL (Negative); Nitrite Negative (Negative); Protein, Urine (Dipstick) Negative (Neg-Trace); RBC/HPF 0-3 HPF (0-3); Squamous Epithelial 0-3 HPF (0-3); Urobilinogen Normal mg/dL (Less than 2)
== END 2020-01-17 11:38 | disposition home or self-care (01) ==
LOC: ERS 09:10
DX: R42 Dizziness and giddiness (principal); E11.9 Type 2 diabetes mellitus without complications; I10 Essential (primary) hypertension; E03.9 Hypothyroidism, unspecified; F41.9 Anxiety disorder, unspecified; Z79.82 Long term (current) use of aspirin; Z79.899 Other long term (current) drug therapy
CPT/HCPCS: 36415; 70450; 80053; 81003; 81015; 82550; 85025; 93005; J1100; J2060; J2405; J7512; J8597

== ENCOUNTER 2021-04-14 16:20 | Emergency (ER) | payer BC, MEDICARE ==
[2021-04-14] MEDS ORDERED: Aspirin Chewable 81 MG TAB ONE (17:25)
[2021-04-14 17:35] LABS: #Basophils 0.1 thou/uL (0.0-0.2); #Eosinphils 0.3 thou/uL (0.0-0.7); #Lymphocytes 2.1 thou/uL (1.20-3.40); #Monocytes 0.6 thou/uL (0.11-0.59); #Neutrophils 5.3 thou/uL (1.40-6.50); %Basophils 0.8 % (0.0-1.0); %Eosinophils 3.7 % (0.0-10.0); %Lymphocytes 24.9 % (21.0-51.0); %Monocytes 6.8 % (0.0-10.0); %Neutrophils 63.8 % (42.0-75.0); Hemoglobin 11.5 g/dL (12.0-16.0); Mean Corpuscular Hemoglobin 29.5 pg (27.0-31.0); Mean Corpuscular Volume 89.4 fL (78.0-98.0); Mean Platelet Volume 6.9 fL (7.4-10.4); Platelet Count 308 thou/uL (130-400); RBC Distribution Width 13.4 % (11.5-14.5); White Blood Cell (WBC) Count 8.3 thou/uL (4.8-10.8)
[2021-04-14 17:57] LABS: ALT (SGPT) 14 U/L (8-55); AST (SGOT) 21 U/L (5-34); Albumin 3.8 g/dL (3.4-4.8); Alkaline Phosphatase 112 U/L (40-110); Anion Gap 14 mmol/L (10-20); BUN (Urea Nitrogen) 19 mg/dL (9.8-20.1); Bilirubin, Total 0.5 mg/dL (0.2-1.2); Calc. Creatinine Clearance 0 mL/min (70-130); Calcium 9.5 mg/dL (7.8-10.44); Carbon Dioxide 25 mmol/L (23-31); Chloride 104 mmol/L (98-107); Glucose 147 mg/dL (83-110); Potassium 3.8 mmol/L (3.5-5.1); Protein, Total 6.8 g/dL (5.8-8.1); Sodium 139 mmol/L (136-145)
== END 2021-04-14 19:10 | disposition home or self-care (01) ==
LOC: ERS 16:20
DX: R07.9 Chest pain, unspecified (principal); E11.9 Type 2 diabetes mellitus without complications; E03.9 Hypothyroidism, unspecified; I10 Essential (primary) hypertension; Z79.899 Other long term (current) drug therapy
CPT/HCPCS: 71045; 80053; 83880; 84484; 85025; 93005; 94760

== ENCOUNTER 2022-04-26 18:10 | Emergency (ER) | payer BC, MEDICARE ==
[2022-04-26] MEDS ORDERED: Meclizine HCl 25 MG TAB ONE (18:47)
[2022-04-26 20:06] LABS: #Basophils 0.1 thou/uL (0.0-0.2); #Eosinphils 0.2 thou/uL (0.0-0.7); #Lymphocytes 2.4 thou/uL (1.20-3.40); #Monocytes 0.5 thou/uL (0.11-0.59); #Neutrophils 6.2 thou/uL (1.40-6.50); %Basophils 0.8 % (0.0-1.0); %Lymphocytes 25.9 % (21.0-51.0); %Monocytes 5.3 % (0.0-10.0); Hemoglobin 11.1 g/dL (12.0-16.0); Mean Corpuscular HGB CONC 31.1 g/dL (32.0-36.0); Mean Corpuscular Hemoglobin 28.5 pg (27.0-31.0); Mean Corpuscular Volume 91.9 fL (78.0-98.0); Platelet Count 336 thou/uL (130-400); RBC Distribution Width 13.7 % (11.5-14.5); Red Blood Cell (RBC) Count 3.88 mill/uL (4.20-5.40); White Blood Cell (WBC) Count 9.4 thou/uL (4.8-10.8)
[2022-04-26 20:36] LABS: Chloride 99 mmol/L (98-107); Potassium 3.6 mmol/L (3.5-5.1); Sodium 135 mmol/L (136-145)
[2022-04-26 20:38] LABS: Albumin 3.8 g/dL (3.4-4.8)
[2022-04-26 20:40] LABS: Calcium 9.1 mg/dL (7.8-10.44); Glucose 111 mg/dL (83-110)
[2022-04-26 20:41] LABS: Globulin 3.3 g/dL (2.4-3.5); Protein, Total 7.1 g/dL (5.8-8.1)
[2022-04-26 20:42] LABS: Anion Gap 14 mmol/L (10-20); Bilirubin, Total 0.6 mg/dL (0.2-1.2); Carbon Dioxide 26 mmol/L (23-31)
[2022-04-26 20:43] LABS: Alkaline Phosphatase 136 U/L (40-110)
[2022-04-26 20:44] LABS: Calc. Creatinine Clearance 0 mL/min (70-130)
[2022-04-26 20:45] LABS: AST (SGOT) 22 U/L (5-34); BUN (Urea Nitrogen) 13 mg/dL (9.8-20.1)
[2022-04-26 20:46] LABS: ALT (SGPT) 14 U/L (8-55)
== END 2022-04-26 21:57 | disposition home or self-care (01) ==
LOC: ERS 18:10
DX: R42 Dizziness and giddiness (principal); I10 Essential (primary) hypertension; D64.9 Anemia, unspecified; E03.9 Hypothyroidism, unspecified; E11.9 Type 2 diabetes mellitus without complications; M19.90 Unspecified osteoarthritis, unspecified site; Z79.82 Long term (current) use of aspirin; Z79.899 Other long term (current) drug therapy
CPT/HCPCS: 36415; 80053; 84484; 85025; 93005

== ENCOUNTER 2022-09-04 22:03 | Emergency (ER) | payer BC, MEDICARE ==
[2022-09-04] MEDS ORDERED: Fentanyl 100 MCG/2 ML VIAL ONE (22:30)
[2022-09-04 22:35] LABS: #Eosinphils 0.3 thou/uL (0.0-0.7); #Lymphocytes 2.1 thou/uL (1.20-3.40); #Monocytes 0.6 thou/uL (0.11-0.59); #Neutrophils 4.9 thou/uL (1.40-6.50); %Basophils 0.3 % (0.0-1.0); %Eosinophils 4.1 % (0.0-10.0); %Lymphocytes 26.6 % (21.0-51.0); %Monocytes 7.8 % (0.0-10.0); %Neutrophils 61.2 % (42.0-75.0); Hemoglobin 10.4 g/dL (12.0-16.0); Mean Corpuscular HGB CONC 31.7 g/dL (32.0-36.0); Mean Corpuscular Hemoglobin 28.2 pg (27.0-31.0); Mean Corpuscular Volume 89.2 fL (78.0-98.0); Mean Platelet Volume 6.7 fL (7.4-10.4); Platelet Count 293 thou/uL (130-400); RBC Distribution Width 14.2 % (11.5-14.5); Red Blood Cell (RBC) Count 3.69 mill/uL (4.20-5.40); White Blood Cell (WBC) Count 8.1 thou/uL (4.8-10.8)
[2022-09-04 22:57] LABS: ALT (SGPT) 17 U/L (8-55); AST (SGOT) 24 U/L (5-34); Albumin 3.8 g/dL (3.4-4.8); Alkaline Phosphatase 126 U/L (40-110); Anion Gap 14 mmol/L (10-20); BUN (Urea Nitrogen) 19 mg/dL (9.8-20.1); Bilirubin, Total 0.4 mg/dL (0.2-1.2); Calc. Creatinine Clearance 0 mL/min (70-130); Calcium 9.2 mg/dL (7.8-10.44); Carbon Dioxide 23 mmol/L (23-31); Chloride 103 mmol/L (98-107); Estimated GFR 60; Globulin 3.4 g/dL (2.4-3.5); Glucose 148 mg/dL (83-110); Lipase 35 U/L (8-78); Magnesium 1.8 mg/dL (1.6-2.6); Potassium 3.3 mmol/L (3.5-5.1); Protein, Total 7.2 g/dL (5.8-8.1); Sodium 137 mmol/L (136-145)
[2022-09-05 00:37] LABS: Bilirubin Negative (Negative); Blood, Urine Negative (Negative); Clarity Clear (Clear); Glucose, Urine (Dipstick) Normal (Negative); Ketone, Urine Negative (Negative); Leukocyte Negative Leu/uL (Negative); Nitrite Negative (Negative); Protein, Urine (Dipstick) Negative (Neg-Trace); Specific Gravity, Urine 1.012 (1.002-1.036); Urobilinogen Normal mg/dL (Less than 2); pH, Urine 6.5 (5.0-9.0)
== END 2022-09-05 01:27 | disposition home or self-care (01) ==
LOC: ERS 22:03
DX: M51.36 Other intervertebral disc degeneration, lumbar region (principal); M47.816 Spondylosis without myelopathy or radiculopathy, lumbar region; I10 Essential (primary) hypertension; E11.9 Type 2 diabetes mellitus without complications; E03.9 Hypothyroidism, unspecified; Z79.899 Other long term (current) drug therapy; Z79.82 Long term (current) use of aspirin
CPT/HCPCS: 36415; 74176; 80053; 81003; 83605; 83690; 83735; 85025; 93005; 96374; J3010

== ENCOUNTER 2022-10-30 10:14 | Emergency (ER) | payer BC, MEDICARE ==
[2022-10-30 12:25] LABS: #Eosinphils 0.2 thou/uL (0.0-0.7); #Monocytes 0.4 thou/uL (0.11-0.59); #Neutrophils 4.5 thou/uL (1.40-6.50); %Basophils 0.2 % (0.0-1.0); %Eosinophils 2.2 % (0.0-10.0); %Lymphocytes 28.5 % (21.0-51.0); %Neutrophils 63.1 % (42.0-75.0); Hemoglobin 11.5 g/dL (12.0-16.0); Mean Corpuscular Hemoglobin 28.4 pg (27.0-31.0); Mean Corpuscular Volume 88.7 fl (78.0-98.0); Platelet Count 272 10x3/uL (130-400); RBC Distribution Width 13.5 % (11.5-14.5); Red Blood Cell (RBC) Count 4.04 mill/uL (4.20-5.40); White Blood Cell (WBC) Count 7.2 10x3/uL (4.8-10.8)
[2022-10-30 12:51] LABS: ALT (SGPT) 15 U/L (8-55); AST (SGOT) 19 U/L (5-34); Albumin 3.9 g/dL (3.4-4.8); Alkaline Phosphatase 125 U/L (40-110); Anion Gap 13 mmol/L (10-20); BUN (Urea Nitrogen) 22 mg/dL (9.8-20.1); Bilirubin, Total 0.4 mg/dL (0.2-1.2); Calc. Creatinine Clearance 0 mL/min (70-130); Calcium 8.8 mg/dL (7.8-10.44); Carbon Dioxide 25 mmol/L (23-31); Chloride 105 mmol/L (98-107); Estimated GFR 74; Globulin 2.8 g/dL (2.4-3.5); Glucose 93 mg/dL (83-110); Lipase 33 U/L (8-78); Potassium 3.9 mmol/L (3.5-5.1); Protein, Total 6.7 g/dL (5.8-8.1); Sodium 139 mmol/L (136-145)
[2022-10-30 15:06] LABS: Bacteria/HPF None Seen HPF (None Seen); Bilirubin Negative (Negative); Blood, Urine Negative (Negative); Clarity Clear (Clear); Glucose, Urine (Dipstick) Normal (Negative); Ketone, Urine Negative (Negative); Leukocyte 25 Leu/uL (Negative); Nitrite Negative (Negative); Protein, Urine (Dipstick) Negative (Neg-Trace); RBC/HPF 0-3 HPF (0-3); Specific Gravity, Urine 1.007 (1.002-1.036); Squamous Epithelial 0-3 HPF (0-3); Urobilinogen Normal mg/dL (Less than 2); WBC/HPF 0-3 HPF (0-3)
== END 2022-10-30 15:46 | disposition home or self-care (01) ==
LOC: ERS 10:14
DX: M54.50 Low back pain, unspecified (principal); E11.9 Type 2 diabetes mellitus without complications; E03.9 Hypothyroidism, unspecified; I10 Essential (primary) hypertension; Z79.899 Other long term (current) drug therapy; Z79.82 Long term (current) use of aspirin
CPT/HCPCS: 36415; 74176; 80053; 81003; 81015; 83605; 83690; 85025; 94760

== ENCOUNTER 2023-08-05 12:31 | Emergency (ER) | payer BC, MEDICARE, OTHER ==
[2023-08-05 13:32] LABS: #Eosinphils 0.1 thou/uL (0.0-0.7); #Monocytes 0.7 thou/uL (0.11-0.59); #Neutrophils 7.1 thou/uL (1.40-6.50); %Basophils 0.3 % (0.0-1.0); %Monocytes 6.8 % (0.0-10.0); %Neutrophils 70.6 % (42.0-75.0); Hematocrit 37.1 % (36.0-47.0); Hemoglobin 12.2 g/dL (12.0-16.0); Mean Corpuscular HGB CONC 32.9 g/dL (32.0-36.0); Mean Corpuscular Hemoglobin 28.2 pg (27.0-31.0); Mean Corpuscular Volume 85.7 fl (78.0-98.0); Platelet Count 351 10x3/uL (130-400); RBC Distribution Width 14.3 % (11.5-14.5); Red Blood Cell (RBC) Count 4.33 mill/uL (4.20-5.40)
[2023-08-05] MEDS ORDERED: Meclizine HCl 25 MG TAB ONE (13:40)
[2023-08-05 13:55] LABS: ALT (SGPT) 17 U/L (8-55); AST (SGOT) 22 U/L (5-34); Albumin 4.1 g/dL (3.4-4.8); Alkaline Phosphatase 113 U/L (40-110); Anion Gap 16 mmol/L (10-20); BUN (Urea Nitrogen) 17 mg/dL (9.8-20.1); Bilirubin, Total 0.5 mg/dL (0.2-1.2); Calc. Creatinine Clearance 0 mL/min (70-130); Calcium 9.9 mg/dL (7.8-10.44); Carbon Dioxide 24 mmol/L (23-31); Chloride 93 mmol/L (98-107); Estimated GFR 57; Globulin 3.5 g/dL (2.4-3.5); Glucose 182 mg/dL (83-110); Potassium 3.5 mmol/L (3.5-5.1); Protein, Total 7.6 g/dL (5.8-8.1); Sodium 129 mmol/L (136-145)
[2023-08-05 13:59] LABS: Troponin I Less than 0.010 ng/mL (< 0.028)
== END 2023-08-05 16:05 | disposition home or self-care (01) ==
LOC: ERS 12:31
DX: R42 Dizziness and giddiness (principal); E03.9 Hypothyroidism, unspecified; R11.2 Nausea with vomiting, unspecified; E78.5 Hyperlipidemia, unspecified; Z79.82 Long term (current) use of aspirin; Z79.899 Other long term (current) drug therapy
CPT/HCPCS: 36415; 70450; 71045; 80053; 84443; 84484; 85025; 93005

== ENCOUNTER 2024-05-24 16:35 | Emergency (ER) | payer OTHER ==
[2024-05-24] MEDS ORDERED: Ondansetron PF 4 MG/2 ML Vial ONE (16:57)
[2024-05-24] MEDS ORDERED: fentaNYL 50 mcg/mL 1 mL Vial ONE (17:11)
[2024-05-24] MEDS ORDERED: Aspirin Chewable 81 MG TAB ONE (17:11)
[2024-05-24 17:21] LABS: #Basophils Less than 0.03 10x3/uL (0.0-0.2); %Basophils 0.3 % (0.0-1.0); %Lymphocytes 34.1 % (21.0-51.0); %Monocytes 6.8 % (0.0-10.0); %Neutrophils 55.5 % (42.0-75.0); Hematocrit 34.2 % (36.0-47.0); Hemoglobin 11.7 g/dL (12.0-16.0); Mean Corpuscular HGB CONC 34.2 g/dL (32.0-36.0); Mean Corpuscular Volume 84.7 fL (78.0-98.0); Mean Platelet Volume 9.5 fL (7.4-10.4); Platelet Count 297 10x3/uL (130-400); RBC Distribution Width 14.3 % (11.5-14.5); Red Blood Cell (RBC) Count 4.04 mill/uL (4.20-5.40)
[2024-05-24 17:34] LABS: ALT (SGPT) 15 U/L (8-55); AST (SGOT) 24 U/L (5-34); Albumin 3.9 g/dL (3.4-4.8); Alkaline Phosphatase 129 U/L (40-110); Anion Gap 18 mmol/L (10-20); BUN (Urea Nitrogen) 15 mg/dL (9.8-20.1); Bilirubin, Total 0.7 mg/dL (0.2-1.2); Calc. Creatinine Clearance 0 mL/min (70-130); Carbon Dioxide 20 mmol/L (23-31); Chloride 104 mmol/L (98-107); Estimated GFR 42; Globulin 3.9 g/dL (2.4-3.5); Glucose 128 mg/dL (83-110); Lipase 32 U/L (8-78); Potassium 3.4 mmol/L (3.5-5.1); Protein, Total 7.8 g/dL (5.8-8.1); Sodium 139 mmol/L (136-145)
[2024-05-24 17:35] LABS: INR-International Normal Ratio 1.1; PTT 23.1 sec (22.9-36.1); Prothrombin Time 13.7 sec (12.0-14.7)
[2024-05-24 17:39] LABS: Troponin I 0.012 ng/mL (< 0.028)
[2024-05-24] MEDS ORDERED: diphenhydrAMINE 50 MG/ML VIAL ONE (17:41)
[2024-05-24] MEDS ORDERED: methylPREDNISolone Sod Succ 40 MG VIAL ONE (17:41)
[2024-05-24] MEDS ORDERED: Famotidine/PF 20 mg/2ml Vial ONE (17:41)
[2024-05-24 20:09] LABS: Bilirubin Negative (Negative); Blood, Urine Trace (Negative); CAUTI Indications for Culture Pelvic or flank pain; Clarity Clear (Clear); Glucose, Urine (Dipstick) Normal (Negative); Ketone, Urine Negative (Negative); Leukocyte 500 Leu/uL (Negative); Nitrite Negative (Negative); Protein, Urine (Dipstick) 10 mg/dL (Neg-Trace); Specific Gravity, Urine 1.011 (1.002-1.036); Urobilinogen Normal mg/dL (Less than 2); pH, Urine 5.5 (5.0-9.0)
[2024-05-24 20:21] LABS: Bacteria/HPF Rare-Few HPF (None Seen); Other Microscopic Description Less than 2 mL rec'd; RBC/HPF 0-3 HPF (0-3); Squamous Epithelial 0-3 HPF (0-3)
[2024-05-24 20:22] LABS: Urine Culture Reflex Yes Yes
== END 2024-05-24 20:40 | disposition home or self-care (01) ==
LOC: ERS 16:35
DX: K25.9 Gastric ulcer, unspecified as acute or chronic, without hemorrhage or perforation (principal); E11.9 Type 2 diabetes mellitus without complications; I10 Essential (primary) hypertension; E03.9 Hypothyroidism, unspecified; E78.5 Hyperlipidemia, unspecified; Z79.899 Other long term (current) drug therapy; Z79.82 Long term (current) use of aspirin
CPT/HCPCS: 71045; 74176; 80053; 81001; 83605; 83690; 83880; 84484; 85025; 85610; 85730; 87086; 93005; 94760; J1200; J2405; J2920; J3010; S0028; 36415; 96374; 96375

== ENCOUNTER 2025-11-05 22:18 | Emergency (ER) | payer OTHER ==
[2025-11-05 22:38] LABS: #Basophils 0.03 10x3/uL (0.0-0.2); #Eosinophils 0.12 10x3/uL (0.0-0.7); #Monocytes 0.68 10x3/uL (0.11-0.59); #Neutrophils 5.78 10x3/uL (1.40-6.50); %Basophils 0.3 % (0.0-1.0); %Eosinophils 1.3 % (0.0-10.0); %Lymphocytes 27.8 % (21.0-51.0); %Monocytes 7.4 % (0.0-10.0); %Neutrophils 62.9 % (42.0-75.0); Hematocrit 34.7 % (36.0-47.0); Hemoglobin 10.9 g/dL (12.0-16.0); Mean Corpuscular Hemoglobin 27.7 pg (27.0-31.0); Mean Corpuscular Volume 88.1 fL (78.0-98.0); Platelet Count 286 10x3/uL (130-400); Red Blood Cell (RBC) Count 3.94 mill/uL (4.20-5.40); White Blood Cell (WBC) Count 9.20 10x3/uL (4.8-10.8)
[2025-11-05 22:57] LABS: INR-International Normal Ratio 1.0; Prothrombin Time 13.5 sec (12.0-14.7)
[2025-11-05 22:58] LABS: PTT 26.5 sec (22.9-36.1)
[2025-11-05 23:00] LABS: ALT (SGPT) 13 U/L (Less than 34); AST (SGOT) 18 U/L (11-34); Albumin 3.4 g/dL (3.1-4.5); Alkaline Phosphatase 107 U/L (40-110); Anion Gap 13 mmol/L (10-20); BUN (Urea Nitrogen) 25 mg/dL (9.8-20.1); Bilirubin, Total 0.4 mg/dL (0.3-1.2); Calc. Creatinine Clearance 0 mL/min (70-130); Calcium 9.2 mg/dL (7.8-10.44); Carbon Dioxide 23 mmol/L (23-31); Chloride 106 mmol/L (98-107); Globulin 3.2 g/dL (2.4-3.5); Glucose 176 mg/dL (83-110); Magnesium 2.1 mg/dL (1.6-2.6); Potassium 4.1 mmol/L (3.5-5.1); Sodium 138 mmol/L (136-145)
== END 2025-11-06 02:32 | disposition home or self-care (01) ==
LOC: ERS 22:18
DX: R07.9 Chest pain, unspecified (principal); R42 Dizziness and giddiness; E78.00 Pure hypercholesterolemia, unspecified; E11.9 Type 2 diabetes mellitus without complications; Z79.899 Other long term (current) drug therapy; Z79.82 Long term (current) use of aspirin
CPT/HCPCS: 70450; 71045; 80053; 83735; 83880; 84443; 84484; 85025; 85610; 85730; 93005

== ENCOUNTER 2025-11-28 12:45 | Emergency (ER) | payer OTHER ==
[2025-11-28 14:28] LABS: #Basophils 0.03 10x3/uL (0.0-0.2); #Eosinophils 0.09 10x3/uL (0.0-0.7); #Monocytes 0.61 10x3/uL (0.11-0.59); #Neutrophils 5.52 10x3/uL (1.40-6.50); %Basophils 0.3 % (0.0-1.0); %Eosinophils 1.0 % (0.0-10.0); %Lymphocytes 32.1 % (21.0-51.0); %Monocytes 6.6 % (0.0-10.0); %Neutrophils 59.9 % (42.0-75.0); Hematocrit 35.7 % (36.0-47.0); Hemoglobin 11.4 g/dL (12.0-16.0); Mean Corpuscular Hemoglobin 27.5 pg (27.0-31.0); Mean Corpuscular Volume 86.2 fL (78.0-98.0); Platelet Count 295 10x3/uL (130-400); Red Blood Cell (RBC) Count 4.14 mill/uL (4.20-5.40); White Blood Cell (WBC) Count 9.22 10x3/uL (4.8-10.8)
[2025-11-28] MEDS ORDERED: Metoclopramide HCl 10 MG (2 mL) VIAL ONE (14:31)
[2025-11-28] MEDS ORDERED: Magnesium 2 GM/50 ML BAG (IN WATER) ONE (14:31)
[2025-11-28 14:48] LABS: ALT (SGPT) 11 U/L (Less than 34); AST (SGOT) 24 U/L (11-34); Albumin 3.6 g/dL (3.1-4.5); Alkaline Phosphatase 98 U/L (40-110); Anion Gap 17 mmol/L (10-20); BUN (Urea Nitrogen) 17 mg/dL (9.8-20.1); Bilirubin, Total 0.4 mg/dL (0.3-1.2); Calc. Creatinine Clearance 0 mL/min (70-130); Calcium 9.5 mg/dL (7.8-10.44); Carbon Dioxide 24 mmol/L (23-31); Chloride 104 mmol/L (98-107); Globulin 3.8 g/dL (2.4-3.5); Glucose 98 mg/dL (83-110); Lipase 35 U/L (8-78); Potassium 3.6 mmol/L (3.5-5.1); Sodium 141 mmol/L (136-145)
[2025-11-28 18:53] LABS: Bacteria/HPF None Seen HPF (None Seen); CAUTI Indications for Culture Pelvic or flank pain; Glucose, Urine (Dipstick) Normal (Negative); Leukocyte 25 Leu/uL (Negative); Protein, Urine (Dipstick) Negative (Neg-Trace); RBC/HPF None Seen HPF (0-3); Specific Gravity, Urine 1.011 (1.002-1.036); WBC/HPF None Seen HPF (0-3)
[2025-11-28 19:04] LABS: Urine Culture Reflex No No
== END 2025-11-28 20:21 | disposition home or self-care (01) ==
LOC: ERS 12:45
DX: R07.2 Precordial pain (principal); R42 Dizziness and giddiness; R51.9 Headache, unspecified; I10 Essential (primary) hypertension; R29.700 NIHSS score 0; E11.9 Type 2 diabetes mellitus without complications
CPT/HCPCS: 70450; 71045; 71250; 74177; 80053; 81001; 83605; 83690; 84484; 85025; 87040; 87428; 93005; 94760; 96365; 96368; 96375; 99285; J2765; J3475; 83880